=== PATIENT | female | born 1950 | race Asian ===

== ENCOUNTER → 2020-11-23 13:12 | Outpatient (CLI) | payer MEDICARE, MEDICAID, SELFPAY ==
--- NOTE | 2020-11-23 | DI.RAD.S_ITS ---
PROCEDURE: FL BARIUM SWALLOW W SPEECH INDICATIONS: Malignant neoplasm of thyroid gland COMPARISON: None. TECHNIQUE: Examination was conducted in conjunction with speech pathology per standard protocol. In the lateral projection, filming was performed of the patient swallowing. AP projection filming may also be performed with patient swallowing. COMPARISON: FINDINGS: Function: The oral preparatory phase appears normal, with proper containment. The subsequent oral propulsive phase, pharyngeal phase, and esophageal phase of swallowing also appear normal with all proffered substances. Mild laryngotracheal penetration noted occasionally with thin liquids. No laryngotracheal penetration with thick liquids, semi-solids or solids. No laryngotracheal aspiration. Mild pooling noted in the bilateral vallecula which was predominantly cleared with repeat swallows.. Morphology: No cricopharyngeal bar is identified. No cervical esophageal webs. No Zenker's diverticulum. No strictures. Tertiary contraction waves noted compatible with esophageal dysmotility. 13 millimeter barium tablet readily passed from the oral cavity to the stomach. IMPRESSION: 1. Mild episodic laryngotracheal penetration with thin liquids. 2. Mild vallecular pooling which is cleared with repeat swallows. 3. Esophageal dysmotility. Dictated by: Hellen Blakely MD, PhD on 11/23/2020 at 15:18 Approved by: Hellen Blakely MD, PhD on 11/23/2020 at 15:20
--- NOTE | 2020-11-23 17:17 | ST.SWALLOW ---
Visit Care Team Role Provider Type Jeny Staples PA-C Attending Provider Non-Staff Primary Care Provider Referring Provider Specialty: Medical Address: [address] [place] [address] [address], [place], [address] Email: Modified Barium Swallow Study TELEVISION ENGINEERING TEACHER Modified Barium Swallow Study Start: 11/23/20 16:30 Freq: Status: Active Protocol: Document 11/23/20 16:30 BENITEZ (Rec: 11/23/20 17:17 [email or web address] [id number]) Modified Barium Swallow Study Total Time Visit Start Time 13:30 Visit Stop Time 14:10 Total Visit Minutes 40 Referral Referring Physician Jeny Staples PA-C Reason for Referral Dysphagia; Carcinoma Thyroid Gland; Hoarseness Setting Setting Outpatient Care Patient Information Identification Type Name,ID Card Patient History The pt is a 70-yr-old female with c/o sticking sensation frequently followed by vomiting with intake of dry solids and large pills. The pt has a history of thyroid gland cancer including 2 surgeries and radiation treatment in November 2019. Swallow difficulties have been present for 4-6 mos. Case history was obtained from the pt. Subjective Observations The pt arrived on time and provided case history. She was accompanied by her son who was present during TELEVISION ENGINEERING TEACHER's education of MBS results. Patient Positioning Position View Lat-A/P Imaging Lateral View Textures Administered Trials Presented Thin Liquid via Spoon,Thin Liquid via Cup,Fallston Liquid via Spoon,Fallston Liquid via Cup,Honey Liquid via Spoon, Dysphagia Blenderized Textures ,Regular Textures Oral Phase Source: MBSIMP (TM) (C) Bolus Specific Scoring Grid Lip Closure No Impairment (WNL) Tongue Control During Bolus Hold No Impairment (WNL) Bolus Prep/Mastication Mild Impairment Bolus Transport/Lingual Motion WFL A/P Lingual Propulsion Delay No Oral Residue Mild Impairment Residue Clearing WFL Nasal Regurgitation No Additional Oral Phase Observations Oral Peripheral Exam: Symmetrical features that were WNL of strength, coordination and ROM. Pt is missing many upper and lower molars bilaterally. Soft palate elevated upon phonation. Oral Prep/Swallow Phases: WFL. Mastication was munching in nature secondary to sparse dentition. Mild oral residue was present and cleared with subsequent swallows initiated independently by the pt. Pharyngeal Phase Source: MBSIMP (TM) (C) Bolus Specific Scoring Grid Delayed Initiation of Pharyngeal Swallow No Soft Palate Elevation No Impairment (WNL) Tongue Base Strength/Range of Motion Mild Impairment Residue Along the Tongue Base Yes Clearance of Residue Along Tongue Base Minimal Impairment Laryngeal Elevation Moderate Impairment Anterior Hyoid Movement Moderate Impairment Epiglottic Range of Motion Severe Impairment Vallecular Residue Yes Clearance of Vallecular Residue Mild Impairment Laryngeal Vestibular Closure Minimal Impairment Pharyngeal Stripping Wave Mild Impairment Pharyngeal Contraction Moderate Impairment Posterior Pharyngeal Wall Residue Yes Clearance of Posterior Pharyngeal Wall Minimal Impairment Residue Upper Esophageal Sphincter Opening No Impairment (WNL) Residue in the Pyriform Sinuses Yes Clearance of Residue in the Pyriform Minimal Impairment Sinuses Esophageal Clearance Upright Position Mild Impairment Pharyngoesophageal Backflow Observed No Additional Pharyngeal Phase Observations Laryngeal penetration of thin liquids was observed in the initial 2 tsp trials with no cough response from the pt. No other penetration and no aspiration was observed. Minimal hyolaryngeal elevation and anterior excursion was present. Additionally, minimal epiglottic inversion was achieved which interfered with linguopharyngeal contact/seal and resulted in mild-moderate pharyngeal residue most significantly at vallecula, to a lesser degree along the base of tongue, aryepiglottic folds, posterior pharyngeal wall, and in the pyriform sinuses. A/P View Textures Administered Trials Presented [place] Liquid via Cup, Dysphagia Blenderized Textures ,Barium Tablet A/P View Observations Pharyngeal Contraction Moderate Impairment Esophageal Function Slowed Clearing,Poor Motility Esophageal Clearance Upright Position Mild Impairment Additional Observations Pharyngeal constriction deviates almost entirely to the right, likely d/t surgical scarring and/or radiation at left side. Esophageal Observations Esophageal Function Esophageal stasis was observed upon initial viewing in a/p position, which cleared with sips of water. A 13 mm barium tablet hesitated at medial esophagus, then passed to stomach with additional sips of liquid. Clinical Impressions Dysphagia Type Mild oropharyngeal dysphagia Findings Oral dysphagia is secondary to sparse dentition. Pharyngeal dysphagia is likely secondary to surgical scarring and radiation and characterized by minimal hyolaryngeal and epiglottic displacement resulting in mild-moderate pharyngeal residue and occasional laryngeal penetration of thin liquids. Residue mostly clears with subsequent swallows. While the patient's airway was mostly well protected during this study, there is concern that, over time, radiation effects may continue to decrease ROM of muscle and tissue which may result in increasing impairment and risk of aspiration. Esophageal dysmotility was observed and reported by Radiologist. This may contribute to the pt's symptoms of difficulty swallowing dry solids and her vomiting episodes. GI consultation is recommended. Rehabilitation Potential Fair Patient Appropriate for Therapy Yes Recommendations Diet Liquids Order Thin Diet Order Mechanical Soft Medication Recommendation As Tolerated Additional Dietary Needs Chopped Food Aspiration Precautions Recommended Precautions Upright at 90 Degrees, Alternate Liquids/Solids,Small Bites/Sips,Double Swallow Additional Precautions Moist foods Treatment Plan Therapy Recommendations Outpatient Speech Therapy Additional Therapy Recommendations Pt/family education; exercises to maintain/increase muscular strength, ROM Recommended Referrals GI Consult Compensatory Strategies Recommendations Sitting Upright (90 deg), Double Swallow Short Term Goals 1. The pt will perform exercises to maintain/increase strength and ROM of swallow musculature to reduce risk of aspiration. 2. The pt will follow safe swallow strategies independently to reduce risk of aspiration. Wire Brusher Goals 1. The pt will tolerate least restrictive diet to meet her nutrition and hydration needs. 2. The pt will demonstrate independence with HEP to promote long-term benefit and reduce impact of possible radiation effect on swallow safety. Placement Recommendation After Discharge Outpatient Therapy
== END ==
PROVIDERS: PCP Physician Assistant Medical; Referring Provider Physician Assistant Medical; Visit Provider Physician Assistant Medical
DX: C73 Malignant neoplasm of thyroid gland (principal); R49.0 Dysphonia; K22.4 Dyskinesia of esophagus
CPT/HCPCS: 74230; 92611

== ENCOUNTER 2021-01-07 13:00 | Outpatient (RCR) | payer MEDICARE, MEDICAID, SELFPAY ==
--- NOTE | 2020-12-30 14:22 | PT.OIE ---
Current Diagnoses Pain in left hip (12/30/20) Stiffness of right shoulder, not elsewhere classified (12/30/20) Stiffness of right hip, not elsewhere classified (12/30/20) Stiffness of left hip, not elsewhere classified (12/30/20) Sciatica, left side (12/30/20) Visit Care Team Role Provider Type Jeny Staples PA-C Attending Provider Non-Staff Primary Care Provider Referring Provider Specialty: Medical Address: [address] [place] [address] [address] [facility], [place], [address] Email: Physical Therapy Initial Evaluation PT-OP-A Visit Information Start: 12/30/20 13:46 Freq: Status: Active Protocol: Document 12/30/20 11:15 DCW (Rec: 12/30/20 14:09 DCW [id number]) Out-Patient Physical Therapy Visit Information Visit Information Visit Type Initial Evaluation Visit Start Time 11:15 Visit Stop Time 11:50 Total Visit Minutes 35 Visit Number 1 Number of ANY COMMODITY SALES DELIVERER Visits 0 Evaluation Information Evaluation Date 12/30/20 PT-OP-B Current Condition Start: 12/30/20 13:46 Freq: Status: Active Protocol: Document 12/30/20 11:15 DCW (Rec: 12/30/20 14:09 DCW [id number]) Current Condition History of Current Condition Onset Date 1-2 years Current Complaints Worsening hip pain, L LE numbness, R shoulder stiffness History of Current Condition Pt is a 70 year old female presenting with a multi-year history of worsening hip pain, L>R, along with occasional left LE numbness, as well as complaints of decreasing right shoulder function. Pt notes her left hip bothers her just walking around her house, and has stopped her from going on walks outside, which is her usual activity. Pt also struggles to cut her grass, which is currently out of control because she is unable to do it. Treatment Goals Patient/Caregiver Goals To return to walking, to return to mowing her yard PT-OP-C Subjective Start: 12/30/20 13:46 Freq: Status: Active Protocol: Document 12/30/20 11:15 DCW (Rec: 12/30/20 14:09 DCW [id number]) OP-PT Subjective Patient Comments Patient Comments Sometimes when I'm walking outside, my legs just don't want to move. Patient Reported Progress Worse Patient Questionnaires Lower Extremity Functional Scale LEFS Score 46.25% LEFS Impairment 40 to 59% Impaired (Score 32- 47) PT-OP-F Manual Assessment Start: 12/30/20 13:46 Freq: Status: Active Protocol: Document 12/30/20 11:15 DCW (Rec: 12/30/20 14:09 DCW [id number]) Manual Assessments Soft Tissue Assessment Soft Tissue Mobility Assessment Moderate tone and tenderness to palpation 3/4: Wincing and withdraw left piriformis, left QL, left ITB, right upper trap, right levator scap Mild tone and tenderness to palpation 2/4: Pain with wincing right piriformis, right QL, right ITB Joint Mobility Assessment Joint Mobility Assessment Right shoulder limited mobility with both active and passive motion PT-OP-K Range of Motion Start: 12/30/20 13:46 Freq: Status: Active Protocol: Document 12/30/20 11:15 DCW (Rec: 12/30/20 14:09 DCW [id number]) Shoulder Goniometric Range of Motion Shoulder Right Active Testing Position Sitting Flexion 96 Abduction 112 PT-OP-L Special Tests Start: 12/30/20 13:46 Freq: Status: Active Protocol: Document 12/30/20 11:15 DCW (Rec: 12/30/20 14:09 DCW [id number]) Special Tests Lumbar Spine Special Tests Lateral SI Compression Test Results Negative A-P Shearing Test Results Negative Hip Special Tests Straight Leg Raise Test Results Positive left anterior hip pain Scour Test Test Results Negative Piriformis Test Results Strongly positive left JOHNATHAN Test Results Positive left anterior hip pain PT-OP-M Strength Start: 12/30/20 13:46 Freq: Status: Active Protocol: Document 12/30/20 11:15 DCW (Rec: 12/30/20 14:09 DCW [id number]) Hip Strength Hip Manual Muscle Testing Right Flexion (L2) 4 Good Abduction 4 Good Adduction 4 Good External Rotation 4- Good- Internal Rotation 4 Good Left Flexion (L2) 4 Good Abduction 4 Good Adduction 4 Good External Rotation 4- Good- Internal Rotation 4 Good Knee Strength Knee Manual Muscle Testing Right Flexion (S2) 4 Good Extension (L3) 4 Good Left Flexion (S2) 4 Good Extension (L3) 4 Good PT-OP-Q Treatments Start: 12/30/20 13:46 Freq: Status: Active Protocol: Document 12/30/20 11:15 DCW (Rec: 12/30/20 14:09 DCW [id number]) Therapeutic Exercises Supine Exercises 1 Supine Exercise Name Piriformis stretch - Figure-4, Knee to opposite shoulder Side bilateral PT-OP-T Assessment and Plan Start: 12/30/20 13:46 Freq: Status: Active Protocol: Document 12/30/20 11:15 DCW (Rec: 12/30/20 14:22 DCW [id number]) Physical Therapy Assessment Rehab Potential Rehabilitation Potential Good Evaluation Complexity Number of Personal Factors/Comorbidities 1-2 Number of Body Systems Impaired 3 Clinical Presentation at Evaluation Evolving Impairments Impairments Activity Tolerance,Functional Activities,Functional Mobility ,Pain,ROM,Soft Tissue Mobility ,Strength,Tone Goals Three Impairment Moderate tone in left piriformis limits pt's walking and causes numbness Director Of Therapy Services Goal (LTG) Pt to display at worst mild left piriformis tone and is able to mow lawn for two hours without experiencing numbness to return to prior level of activity with home chores. LTG Duration 03/01/21 Two Impairment Pt right shoulder ROM restricted to 96? flexion and 112? abduction Group Home Goal (LTG) Pt to increased both flexion and abduction of right shoulder to at least 130? to improve ability to wash and style her hair. 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 Pt has moderate hypertonia in left piriformis and left QL, which appear to be creating pressure on her sciatic nerve, resulting in numbness in her left lower extremity, limiting pt's participation in her usual ADLs. 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 Pt should benefit from skilled therapy focusing on stretching/ flexibility of the low back and hips, STM to decrease tone , hip strengthening, and joint mobilizations of the right shoulder. Physical Therapy Plan Frequency and Duration Frequency of Treatment 1x/Week Duration of Treatment 8 weeks Plan of Care Start Date 12/30/20 Plan of Care End Date 02/24/21 Therapeutic Interventions Therapeutic Interventions Aquatic Therapy,Home Exercise Program,Joint Mobilizations, Manual Therapy,Patient/ Caregiver Education,Self-Care/ Home Management,Soft Tissue Mobilization,Therapeutic Activities,Therapeutic Exercises Modalities Cold Pack/Ice Massage,Electric Stimulation,Hot Packs, Ultrasound Next Visit Focus/Plan Next Note Type Treatment Note Next Visit Plan Flexibility/stretching, hip strengthening, GH joint mobilizations, STM
--- NOTE | 2020-12-30 14:22 | PT.OPPOC ---
Physical, Occupational & Speech Therapy At [facility] Current Diagnoses Pain in left hip (12/30/20) Stiffness of right shoulder, not elsewhere classified (12/30/20) Stiffness of right hip, not elsewhere classified (12/30/20) Stiffness of left hip, not elsewhere classified (12/30/20) Sciatica, left side (12/30/20) Visit Care Team Role Provider Type Jeny Staples PA-C Attending Provider Non-Staff Primary Care Provider Referring Provider Specialty: Medical Address: [address] [place] [address] [address], [place], [address] Email: Plan Of Care PT-OP-T Assessment and Plan Start: 12/30/20 13:46 Freq: Status: Active Protocol: Document 12/30/20 11:15 DCW (Rec: 12/30/20 14:22 DCW [id number]) Physical Therapy Assessment Rehab Potential Rehabilitation Potential Good Evaluation Complexity Number of Personal Factors/Comorbidities 1-2 Number of Body Systems Impaired 3 Clinical Presentation at Evaluation Evolving Impairments Impairments Activity Tolerance,Functional Activities,Functional Mobility ,Pain,ROM,Soft Tissue Mobility ,Strength,Tone Goals Three Impairment Moderate tone in left piriformis limits pt's walking and causes numbness Prison Goal (LTG) Pt to display at worst mild left piriformis tone and is able to mow lawn for two hours without experiencing numbness to return to prior level of activity with home chores. LTG Duration 03/01/21 Two Impairment Pt right shoulder ROM restricted to 96? flexion and 112? abduction Rn Clinical Coordinator Goal (LTG) Pt to increased both flexion and abduction of right shoulder to at least 130? to improve ability to wash and style her hair. 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 Pt has moderate hypertonia in left piriformis and left QL, which appear to be creating pressure on her sciatic nerve, resulting in numbness in her left lower extremity, limiting pt's participation in her usual ADLs. 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 Pt should benefit from skilled therapy focusing on stretching/ flexibility of the low back and hips, STM to decrease tone , hip strengthening, and joint mobilizations of the right shoulder. Physical Therapy Plan Frequency and Duration Frequency of Treatment 1x/Week Duration of Treatment 8 weeks Plan of Care Start Date 12/30/20 Plan of Care End Date 02/24/21 Therapeutic Interventions Therapeutic Interventions Aquatic Therapy,Home Exercise Program,Joint Mobilizations, Manual Therapy,Patient/ Caregiver Education,Self-Care/ Home Management,Soft Tissue Mobilization,Therapeutic Activities,Therapeutic Exercises Modalities Cold Pack/Ice Massage,Electric Stimulation,Hot Packs, Ultrasound Next Visit Focus/Plan Next Note Type Treatment Note Next Visit Plan Flexibility/stretching, hip strengthening, GH joint mobilizations, STM Plan of Care Dates Plan of Care Start Date 12/30/20 Plan of Care End Date 02/24/21 Electronically Signed by: James Pierre, PT 12/30/20 [id number] Please Sign and Return: I have reviewed this Plan of Care and certify that the skilled therapy services above are required to meet the patient?s needs. Physician Signature Date Printed Name and Credentials Clinical Instructor Signature Printed Name and Credentials
--- NOTE | 2021-01-07 13:52 | PT.OTN ---
Current Diagnoses Pain in left hip (01/07/21) Stiffness of right shoulder, not elsewhere classified (01/07/21) Stiffness of right hip, not elsewhere classified (01/07/21) Stiffness of left hip, not elsewhere classified (01/07/21) Sciatica, left side (01/07/21) Physical Therapy Treatment Note PT-OP-A Visit Information Start: 12/30/20 13:46 Freq: Status: Active Protocol: Document 01/07/21 13:11 SP (Rec: 01/07/21 16:10 SP [id number]) Out-Patient Physical Therapy Visit Information Visit Information Visit Type Treatment Note Visit Note HAND SPRAYER late bringing pt back. Visit Start Time 13:11 Visit Stop Time 13:52 Total Visit Minutes 41 Visit Number 2 Number of HAND SPRAYER Visits 1 Evaluation Information Evaluation Date 12/30/20 PT-OP-B Current Condition Start: 12/30/20 13:46 Freq: Status: Active Protocol: Document 12/30/20 11:15 DCW (Rec: 12/30/20 14:09 DCW [id number]) Current Condition History of Current Condition Onset Date 1-2 years Current Complaints Worsening hip pain, L LE numbness, R shoulder stiffness History of Current Condition Pt is a 70 year old female presenting with a multi-year history of worsening hip pain, L>R, along with occasional left LE numbness, as well as complaints of decreasing right shoulder function. Pt notes her left hip bothers her just walking around her house, and has stopped her from going on walks outside, which is her usual activity. Pt also struggles to cut her grass, which is currently out of control because she is unable to do it. Treatment Goals Patient/Caregiver Goals To return to walking, to return to mowing her yard PT-OP-C Subjective Start: 12/30/20 13:46 Freq: Status: Active Protocol: Document 01/07/21 13:11 SP (Rec: 01/07/21 16:10 SP [id number]) OP-PT Subjective Patient Comments Patient Comments Pt states manual did help after last tx, PT-OP-F Manual Assessment Start: 12/30/20 13:46 Freq: Status: Active Protocol: Document 12/30/20 11:15 DCW (Rec: 12/30/20 14:09 DCW [id number]) Manual Assessments Soft Tissue Assessment Soft Tissue Mobility Assessment Moderate tone and tenderness to palpation 3/4: Wincing and withdraw left piriformis, left QL, left ITB, right upper trap, right levator scap Mild tone and tenderness to palpation 2/4: Pain with wincing right piriformis, right QL, right ITB Joint Mobility Assessment Joint Mobility Assessment Right shoulder limited mobility with both active and passive motion PT-OP-K Range of Motion Start: 12/30/20 13:46 Freq: Status: Active Protocol: Document 12/30/20 11:15 DCW (Rec: 12/30/20 14:09 DCW [id number]) Shoulder Goniometric Range of Motion Shoulder Right Active Testing Position Sitting Flexion 96 Abduction 112 PT-OP-L Special Tests Start: 12/30/20 13:46 Freq: Status: Active Protocol: Document 12/30/20 11:15 DCW (Rec: 12/30/20 14:09 DCW [id number]) Special Tests Lumbar Spine Special Tests Lateral SI Compression Test Results Negative A-P Shearing Test Results Negative Hip Special Tests Straight Leg Raise Test Results Positive left anterior hip pain Scour Test Test Results Negative Piriformis Test Results Strongly positive left JOHNATHAN Test Results Positive left anterior hip pain PT-OP-M Strength Start: 12/30/20 13:46 Freq: Status: Active Protocol: Document 12/30/20 11:15 DCW (Rec: 12/30/20 14:09 DCW [id number]) Hip Strength Hip Manual Muscle Testing Right Flexion (L2) 4 Good Abduction 4 Good Adduction 4 Good External Rotation 4- Good- Internal Rotation 4 Good Left Flexion (L2) 4 Good Abduction 4 Good Adduction 4 Good External Rotation 4- Good- Internal Rotation 4 Good Knee Strength Knee Manual Muscle Testing Right Flexion (S2) 4 Good Extension (L3) 4 Good Left Flexion (S2) 4 Good Extension (L3) 4 Good PT-OP-Q Treatments Start: 12/30/20 13:46 Freq: Status: Active Protocol: Document 01/07/21 13:11 SP (Rec: 01/07/21 16:10 SP [id number]) Therapeutic Exercises Supine Exercises 1 Supine Exercise Name Piriformis/ Figure-4 strech: Knee to opposite shoulder, foot table w/breath Side bilateral Reps/Minutes 30x2 Comments improved after modified to keep foot contact table, decr hip Sitting Exercises scap retraction Side right Reps/Minutes 5 hold x5 Comments cued upright posture, not lean back, gentle fluid mvt Standing Exercises self STMs Standing Exercise Name R UT and L pirformis at wall Equipment Used racquetball Comments good feedback response, loosens up the muscles Sustained pr/ then roll Manual Therapy Treatment Soft Tissue Mobilization L pirformis Mobilization Type Cross-Friction,Myofascial Release,Rolling,Sustained Pressure Intensity/Depth Moderate Body Position Sidelying Comments manual then instruction onself use of racquetball on wall with good results and helpful to carryover at home. Joint Mobilizations R GH Jt mob Joint R Direction post, inf Grade I Body Position Hooklying Comments sensitive to mobility- better response to sidelying PNF. Manual Techniques R shld PNF Type retract, depression Body Position Sidelying Comments cued on side stacked shld/ hips, trunk stab, fluid glide- decreased muscle tightness over UT and anterior R shld. PT-OP-T Assessment and Plan Start: 12/30/20 13:46 Freq: Status: Active Protocol: Document 01/07/21 13:11 SP (Rec: 01/07/21 16:10 SP [id number]) Physical Therapy Assessment Goals Three Impairment Moderate tone in left piriformis limits pt's walking and causes numbness Shelter Goal (LTG) Pt to display at worst mild left piriformis tone and is able to mow lawn for two hours without experiencing numbness to return to prior level of activity with home chores. LTG Duration 03/01/21 Two Impairment Pt right shoulder ROM restricted to 96? flexion and 112? abduction Shelter Goal (LTG) Pt to increased both flexion and abduction of right shoulder to at least 130? to improve ability to wash and style her hair. LTG Duration 03/01/21 One Impairment Pt does not have an appropriate home exercise program Short Term Goal (STG) Pt to be independent and compliant with an appropriate HEP STG Duration 01/29/21 Assessment Summary Assessment Pt found most relief from R shld PNF and sidelying STMs over piriformis and instruction use of racquetball same areas back to wall for home. Provided sleeve for placement over UT for home. Physical Therapy Plan Frequency and Duration Frequency of Treatment 1x/Week Duration of Treatment 8 weeks Plan of Care Start Date 12/30/20 Plan of Care End Date 02/24/21 Therapeutic Interventions Therapeutic Interventions Aquatic Therapy,Home Exercise Program,Joint Mobilizations, Manual Therapy,Patient/ Caregiver Education,Self-Care/ Home Management,Soft Tissue Mobilization,Therapeutic Activities,Therapeutic Exercises Modalities Cold Pack/Ice Massage,Electric Stimulation,Hot Packs, Ultrasound Next Visit Focus/Plan Next Note Type Treatment Note Next Visit Plan Next tx: review HEP, add pendulums R UE Continue PT POC: Flexibility/stretching, hip strengthening, GH joint mobilizations, STM
--- NOTE | 2021-01-25 17:55 | PT.OPDS ---
Current Diagnoses Pain in left hip (01/07/21) Stiffness of right shoulder, not elsewhere classified (01/07/21) Stiffness of right hip, not elsewhere classified (01/07/21) Stiffness of left hip, not elsewhere classified (01/07/21) Sciatica, left side (01/07/21) Visit Care Team Role Provider Type Jeny Staples PA-C Attending Provider Non-Staff Primary Care Provider Referring Provider Specialty: Medical Address: [address] [place] [address] [address] [facility], [place], [address] Email: Visit Number Visit Number 2 Discharge Summary PT-OP-B Current Condition Start: 12/30/20 13:46 Freq: Status: Active Protocol: Document 12/30/20 11:15 DCW (Rec: 12/30/20 14:09 DCW [id number]) Current Condition History of Current Condition Onset Date 1-2 years Current Complaints Worsening hip pain, L LE numbness, R shoulder stiffness History of Current Condition Pt is a 70 year old female presenting with a multi-year history of worsening hip pain, L>R, along with occasional left LE numbness, as well as complaints of decreasing right shoulder function. Pt notes her left hip bothers her just walking around her house, and has stopped her from going on walks outside, which is her usual activity. Pt also struggles to cut her grass, which is currently out of control because she is unable to do it. Treatment Goals Patient/Caregiver Goals To return to walking, to return to mowing her yard PT-OP-C Subjective Start: 12/30/20 13:46 Freq: Status: Active Protocol: Document 01/07/21 13:11 SP (Rec: 01/07/21 16:10 SP [id number]) OP-PT Subjective Patient Comments Patient Comments Pt states manual did help after last tx, PT-OP-F Manual Assessment Start: 12/30/20 13:46 Freq: Status: Active Protocol: Document 12/30/20 11:15 DCW (Rec: 12/30/20 14:09 DCW [id number]) Manual Assessments Soft Tissue Assessment Soft Tissue Mobility Assessment Moderate tone and tenderness to palpation 3/4: Wincing and withdraw left piriformis, left QL, left ITB, right upper trap, right levator scap Mild tone and tenderness to palpation 2/4: Pain with wincing right piriformis, right QL, right ITB Joint Mobility Assessment Joint Mobility Assessment Right shoulder limited mobility with both active and passive motion PT-OP-K Range of Motion Start: 12/30/20 13:46 Freq: Status: Active Protocol: Document 12/30/20 11:15 DCW (Rec: 12/30/20 14:09 DCW [id number]) Shoulder Goniometric Range of Motion Shoulder Right Active Testing Position Sitting Flexion 96 Abduction 112 PT-OP-L Special Tests Start: 12/30/20 13:46 Freq: Status: Active Protocol: Document 12/30/20 11:15 DCW (Rec: 12/30/20 14:09 DCW [id number]) Special Tests Lumbar Spine Special Tests Lateral SI Compression Test Results Negative A-P Shearing Test Results Negative Hip Special Tests Straight Leg Raise Test Results Positive left anterior hip pain Scour Test Test Results Negative Piriformis Test Results Strongly positive left JOHNATHAN Test Results Positive left anterior hip pain PT-OP-M Strength Start: 12/30/20 13:46 Freq: Status: Active Protocol: Document 12/30/20 11:15 DCW (Rec: 12/30/20 14:09 DCW [id number]) Hip Strength Hip Manual Muscle Testing Right Flexion (L2) 4 Good Abduction 4 Good Adduction 4 Good External Rotation 4- Good- Internal Rotation 4 Good Left Flexion (L2) 4 Good Abduction 4 Good Adduction 4 Good External Rotation 4- Good- Internal Rotation 4 Good Knee Strength Knee Manual Muscle Testing Right Flexion (S2) 4 Good Extension (L3) 4 Good Left Flexion (S2) 4 Good Extension (L3) 4 Good PT-OP-T Assessment and Plan Start: 12/30/20 13:46 Freq: Status: Active Protocol: Document 01/25/21 17:53 DCW (Rec: 01/25/21 17:55 DCW [id number]) Physical Therapy Assessment Goals Three Impairment Moderate tone in left piriformis limits pt's walking and causes numbness Public Affairs Manager Goal (LTG) Pt to display at worst mild left piriformis tone and is able to mow lawn for two hours without experiencing numbness to return to prior level of activity with home chores. LTG Duration 03/01/21 Two Impairment Pt right shoulder ROM restricted to 96? flexion and 112? abduction Retirement Goal (LTG) Pt to increased both flexion and abduction of right shoulder to at least 130? to improve ability to wash and style her hair. LTG Duration 03/01/21 One Impairment Pt does not have an appropriate home exercise program Short Term Goal (STG) Pt to be independent and compliant with an appropriate HEP STG Duration 01/29/21 Assessment Summary Assessment Pt's caregiver called clinic on 01/12/21 stating pt was requesting discharge, it was too far of a drive to get to her appointments. Pt will be discharged from skilled PT at this time, and will require a new referral in order to return. Physical Therapy Plan Discharge Physical Therapy Discharge Reasons Patient Request Next Visit Focus/Plan Next Note Type Discharge Summary
== END 2021-01-26 10:02 | disposition home or self-care (01) ==
LOC: PHYS 13:00
PROVIDERS: PCP Physician Assistant Medical; Referring Provider Physician Assistant Medical; Visit Provider Physician Assistant Medical
DX: M25.552 Pain in left hip (principal); M25.652 Stiffness of left hip, not elsewhere classified; M25.651 Stiffness of right hip, not elsewhere classified; M54.32 Sciatica, left side; M25.611 Stiffness of right shoulder, not elsewhere classified
CPT/HCPCS: 97110; 97140; 97162

== ENCOUNTER → 2021-08-24 10:34 | Outpatient (CLI) | payer MEDICARE, MEDICAID, SELFPAY ==
--- NOTE | 2021-08-24 | DI.US.S_ITS ---
ULTRASOUND OF LEFT BREAST: 08/24/2021 CLINICAL: Patient returns today to evaluate a focal asymmetry in the left breast. Comparison is made to exams dated: 08/24/2021 mammogram - [facility], 07/14/2021 mammogram, and 07/14/2020 mammogram - [facility]. Color flow and real-time ultrasound of the left breast were performed. Green scale images of the real-time examination were reviewed. There is a 0.6 cm x 0.3 cm x 0.4 cm wider than tall oval cyst in the left breast at 7 o'clock middle depth 4 cm from the nipple. This oval cyst is hypoechoic. This correlates with mammography findings. Color flow imaging demonstrates that there is no vascularity present. IMPRESSION: BENIGN There is no sonographic evidence of malignancy. The 0.6 cm x 0.3 cm x 0.4 cm wider than tall oval simple cyst in the left breast is benign. A 1 year screening mammogram is recommended. Findings and recommendations were conveyed to the patient during today's evaluation. This exam was interpreted at Station ID: [id number]. Electronically Signed By: Nils Hearn M.D. aty/:08/24/2021 11:55:57 letter sent: Normal Exam Ultrasound BI-RADS: 2 Benign
--- NOTE | 2021-08-24 | DI.MG.S_ITS ---
UNILATERAL LEFT DIGITAL DIAGNOSTIC MAMMOGRAM 3D/2D WITH ADDITIONAL VIEWS: 08/24/2021 CLINICAL: Short term follow up for the left breast. Additional evaluation requested from prior study. Comparison is made to exams dated: 07/14/2021 mammogram, 07/14/2020 mammogram, and 12/12/2018 mammogram - [facility]. There are scattered fibroglandular elements in left breast. There is a 0.6 cm oval equal density mass in the left breast at 7 o'clock middle depth. This is seen in additional views. No other significant masses or calcifications are seen in the breast. IMPRESSION: INCOMPLETE: NEEDS ADDITIONAL IMAGING EVALUATION The 0.6 cm oval equal density mass in the left breast resembles a cyst or a lymph node and is indeterminate. An ultrasound is recommended for further evaluation and is scheduled to immediately follow this examination. This exam was interpreted at Station ID: [id number]. NOTE: For mammograms, a report in lay terms will be sent to the patient. Approximately 15% of breast malignancies will not be visualized mammographically. In the management of a palpable breast mass, a negative mammogram must not discourage biopsy of a clinically suspicious lesion. Electronically Signed By: Nils Hearn M.D. aty/:08/24/2021 11:54:23 ACR BI-RADS Category 0: Incomplete [id number]
== END ==
PROVIDERS: PCP Physician Assistant Medical; Referring Provider Physician Assistant Medical; Visit Provider Physician Assistant Medical
DX: R92.8 Other abnormal and inconclusive findings on diagnostic imaging of breast (principal); N60.02 Solitary cyst of left breast
CPT/HCPCS: 76642; 77065; G0279

== ENCOUNTER → 2022-07-22 09:05 | Outpatient (CLI) | payer MEDICARE, MEDICAID, SELFPAY ==
--- NOTE | 2022-07-22 09:08 | DI.MG.S_ITS ---
BILATERAL DIGITAL SCREENING MAMMOGRAM 3D/2D WITH CAD: 07/22/2022 CLINICAL: Routine screening. Comparison is made to exams dated: 07/14/2021 mammogram, 07/14/2020 mammogram, 12/12/2018 mammogram - [facility], and 08/24/2021 mammogram - [facility]. There are scattered areas of fibroglandular density in both breasts (category b / 25%-50% glandular tissue). Current study was also evaluated with a Computer Aided Detection (CAD) system. No significant masses, calcifications, or other findings are seen in either breast. There has been no significant interval change. IMPRESSION: NEGATIVE There is no mammographic evidence of malignancy. A 1 year screening mammogram is recommended. Based on the Tyrer Cuzick model (a risk assessment model) the patient's lifetime risk is 4.2% and her 10 year risk is 2.9%. According to the ACR, ACS, and NCCN guidelines, an annual breast MRI exam along with mammogram is recommended if the patient's lifetime risk is 20% or greater. This exam was interpreted at Station ID: [id number]. NOTE: For mammograms, a report in lay terms will be sent to the patient. Approximately 15% of breast malignancies will not be visualized mammographically. In the management of a palpable breast mass, a negative mammogram must not discourage biopsy of a clinically suspicious lesion. Electronically Signed By: Kaleb temple/megha:07/22/2022 15:16:36 letter sent: Normal Exam ACR BI-RADS Category 1: Negative [id number]
== END ==
PROVIDERS: PCP Physician Assistant Medical; Referring Provider Physician Assistant Medical; Visit Provider Physician Assistant Medical
DX: Z12.31 Encounter for screening mammogram for malignant neoplasm of breast (principal)
CPT/HCPCS: 77063; 77067